=== PATIENT | female | born 1995 | race Two or more races ===

== ENCOUNTER 2019-06-20 23:28 | Emergency (ER) | payer BC ==
[~2019-06-20] VITALS: Ht 167.6 cm; Wt 106.6 kg
[2019-06-20 23:35] VITALS: BP 106/68
--- NOTE | 2019-06-20 23:35 | NUR ---
ED Nurse Note: pt walked in c/o cough x 2 days and lower back pain, pt reports she had fever yesterday, reports taking ibuprofen 600mg this morning. denies pain at the moment. patient ao4. nad. vss. expiratory wheezes noted.
[2019-06-20] MEDS ORDERED: ALBUTEROL SULF8.5 GM INH (23:44)
[2019-06-20] MEDS ORDERED: PREDNISONE20 MG ORAL (23:44)
[2019-06-20] MEDS ORDERED: Ipratropium 0.02% Inh Soln 2.5ml UD HHN ONE (23:45)
[2019-06-20] MEDS ORDERED: Albuterol ud Inhalation HHN ONE (23:45)
--- NOTE | 2019-06-20 23:45 | Emergency Room Report ---
History of Present Illness General Chief Complaint: Upper Respiratory Illness Source: Patient Present Illness [facility] This is a 24-year-old female with no past medical history. She presents with chief complaint of cough. Onset for last 3 days. Does have some congestion. She states she felt wheezing. Worse in cold environment. She works at [employer] and [employer] and when she goes into the fridge area she get worse. No fever chills but no nausea no vomiting. No chest pain. Better with rest. Worse with inspiration. Allergies: Coded Allergies: No Known Allergies (Unverified , 06/20/19) Patient History Past Medical History: see triage record, old chart reviewed Past Surgical History: none Pertinent Family History: none Social History: Denies: smoking Now: No Immunizations: other Reviewed Nursing Documentation: PMH: Agreed; PSxH: Agreed Nursing Documentation-PMH Past Medical History: No Stated History Review of Systems Eye: Denies: eye pain, blurred vision ENT: Denies: ear pain, nose congestion, throat swelling Respiratory: Reports: cough, shortness of breath, wheezing Cardiovascular: Denies: chest pain, palpitations Gastrointestinal: Denies: abdominal pain, diarrhea, nausea, vomiting Musculoskeletal: Denies: back pain, joint pain Skin: Denies: rash Neurological: Denies: headache, numbness Endocrine: Denies: increased thirst, increased urine Hematologic/Lymphatic: Denies: easy bruising All Other Systems: negative except mentioned in HPI Physical Exam Vital Signs Date Time Temp Pulse Resp B/P (MAP) Pulse Ox O2 Delivery O2 Flow Rate FiO2 06/20/19 23:32 98.1 90 18 106/68 (81) 97 Room Air Vitals normal Sp02 EP Interpretation: reviewed, normal General Appearance: well appearing, no apparent distress, alert, obese Head: normocephalic, atraumatic Eyes: bilateral eye PERRL, bilateral eye EOMI ENT: hearing grossly normal, normal pharynx Neck: full range of motion, supple, no meningismus Respiratory: chest non-tender, lungs clear, normal breath sounds Cardiovascular #1: regular rate, rhythm, no murmur Gastrointestinal: normal bowel sounds, non tender, no mass, no organomegaly, no bruit, non-distended Musculoskeletal: back normal, normal range of motion, gait/station normal Psychiatric: mood/affect normal Medical Decision Making Diagnostic Impression: Primary Impression: Asthma exacerbation Qualified Codes: J45.21 - Mild intermittent asthma with (acute) exacerbation ER Course Patient with symptoms consistent with asthma. She states she get breathing treatments several times already. When she gets sick or there is dust or cold, she gets wheezy. No evidence of pneumonia, ACS, dissection to name a few. Last Vital Signs Date Time Temp Pulse Resp B/P (MAP) Pulse Ox O2 Delivery O2 Flow Rate FiO2 06/20/19 23:32 98.1 90 18 106/68 (81) 97 Room Air Status: improved Disposition: HOME, SELF-CARE Condition: Stable Scripts Prednisone* (PREDNISONE*) 20 Mg Tablet 40 MG ORAL DAILY, #8 TAB Prov: Odilon Torres MD 06/20/19 Albuterol Sulfate* (ALBUTEROL SULFATE MDI*) 8.5 Gm Hfa.aer.ad 2 PUFF INH Q4H PRN for cough/wheezing, #1 EA 0 Refills Prov: Odilon Torres MD 06/20/19 Additional Instructions: Follow-up with your doctor in 7 days. Return if worse. Odilon Torres MD Jun 20, 2019 23:45
--- NOTE | 2019-06-21 00:18 | NUR ---
ED Nurse Note: rt at bedside with breathing tx. patient in no acute distress. tolerating tx well
--- NOTE | 2019-06-21 00:20 | NUR ---
ER DISCHARGE NOTE: Patient is cleared to be discharged per ERMD, pt is aox4, on room air, with stable vital signs. pt was given dc and prescription instructions, pt was able to verbalize understanding, pt id band removed. pt is able to ambulate with steady gait. pt took all belongings.
[2019-06-21 00:22] VITALS: BP 106/68
== END 2019-06-21 00:20 | disposition home or self-care (01) ==
LOC: EMR 23:50
DX: J45.21 Mild intermittent asthma with (acute) exacerbation (principal)
CPT/HCPCS: 94640; 99283; J7512

== ENCOUNTER 2019-06-24 05:01 | Emergency (ER) | payer BC ==
[~2019-06-24] VITALS: Ht 167.6 cm; Wt 102.5 kg
[~2019-06-24 05:01] MED LIST: ALBUTEROL SULF8.5 GM INH; PREDNISONE20 MG ORAL
--- NOTE | 2019-06-24 05:10 | NUR ---
ED Nurse Note: Patient walked into ED stating that she is unable to take continous deep breathes with onset about 0100, states inhalers have found no relief, satting at 98% able to speak in full sentences. Pt aox4, calm and resting in bed NAD, VSS. Friend at bedside. ERMD at bedside. Will continue to monitor.
[2019-06-24] MEDS ORDERED: Ipratropium 0.02% Inh Soln 2.5ml UD HHN ONE (05:15)
[2019-06-24] MEDS ORDERED: Albuterol ud Inhalation HHN ONE (05:15)
--- NOTE | 2019-06-24 05:20 | Emergency Room Report ---
History of Present Illness General Chief Complaint: Dyspnea/Respdistress Source: Patient (Harpreet Romero M.D.) Present Illness HPI 24-year-old female who presents with shortness of breath for 3 days duration worsening. She was seen recently and prescribed inhaler and prednisone with no improvement of symptoms. Patient denies any nausea vomiting but notes subjective fevers and congestion. Patient has no history of asthma.Patient states that her symptoms are worse in a cold environment especially when she goes into the fridge at [employer] and [employer] where she works. She notes now though compared to her last visit she is having chest tightness that worsens with inspiration. (Harpreet Romero M.D.) Allergies: Coded Allergies: No Known Allergies (Unverified , 06/20/19) Patient History Past Medical History: none Past Surgical History: none Last Menstrual Period: 05/31/19 (Harpreet Romero M.D.) Nursing Documentation-[facility] Past Medical History: No History, Except For Hx Asthma: Yes - bronchitis (Harpreet Romero M.D.) Review of Systems Constitutional: Denies: chills, fever Respiratory: Reports: cough, shortness of breath Cardiovascular: Denies: chest pain, palpitations Gastrointestinal: Denies: diarrhea, vomiting Genitourinary: Denies: hematuria, pain Musculoskeletal: Denies: joint swelling Skin: Denies: rash, lesions Neurological: Denies: headache, dizziness (Harpreet Romero M.D.) Physical Exam Vital Signs Date Time Temp Pulse Resp B/P (MAP) Pulse Ox O2 Delivery O2 Flow Rate FiO2 06/24/19 05:04 98.4 91 18 109/67 (81) 97 Room Air Sp02 EP Interpretation: reviewed General Appearance: well appearing, no apparent distress, non-toxic Head: normocephalic, atraumatic Eyes: bilateral eye normal inspection ENT: hearing grossly normal, EOM grossly intact, moist mucus membranes Neck: supple Respiratory: lungs clear, normal breath sounds, no rhonchi, no respiratory distress, no retraction, no accessory muscle use, no wheezing, speaking full sentences Cardiovascular #1: regular rate, rhythm, normal capillary refill Cardiovascular #2: 2+ radial (R), 2+ radial (L) Gastrointestinal: soft, no mass, no organomegaly, no peritonitis, non-distended Rectal: deferred Musculoskeletal: moves extm spontaneously, no lower extremity edema Neurologic: grossly normal Psychiatric: mood/affect normal Skin: warm/dry, normal turgor (Harpreet Romero M.D.) Medical Decision Making Diagnostic Impression: Primary Impression: Asthma attack Qualified Codes: J45.21 - Mild intermittent asthma with (acute) exacerbation ER Course 24-year-old female with shortness of breath and chest tightness. Not improving on steroids or albuterol. No history of asthma. Symptoms worsen with cold associated with congestion. Differential includes but is not limited to ACS pulmonary embolism pneumonia bronchitis asthma URI Will perform lab testing and chest x-ray at this time as patient initially failed outpatient management with inhaler and steroids. (Harpreet Romero M.D.) ER Course 24-year-old female presents with shortness of breath, differential diagnosis includes asthma exacerbation, PE, pneumonia Patient improved with breathing treatment Patient with a positive d-dimer, CT is negative Disposition home with return precautions Laboratory Tests Test 06/24/19 05:28 White Blood Count 14.8 K/UL (4.8-10.8) H Red Blood Count 4.16 M/UL (4.20-5.40) L Hemoglobin 8.7 G/DL (12.0-16.0) L Hematocrit 28.2 % (37.0-47.0) L Mean Corpuscular Volume 68 FL (80-99) L Mean Corpuscular Hemoglobin 21.0 PG (27.0-31.0) L Mean Corpuscular Hemoglobin Concent 31.0 G/DL (32.0-36.0) L Red Cell Distribution Width 16.3 % (11.6-14.8) H Platelet Count 387 K/UL (150-450) Mean Platelet Volume 7.0 FL (6.5-10.1) Neutrophils (%) (Auto) 60.5 % (45.0-75.0) Lymphocytes (%) (Auto) 31.0 % (20.0-45.0) Monocytes (%) (Auto) 6.6 % (1.0-10.0) Eosinophils (%) (Auto) 1.4 % (0.0-3.0) Basophils (%) (Auto) 0.6 % (0.0-2.0) D-Dimer 0.95 mg/L FEU (0.00-0.49) H Sodium Level 139 MMOL/L (136-145) Potassium Level 3.5 MMOL/L (3.5-5.1) Chloride Level 106 MMOL/L (98-107) Carbon Dioxide Level 24 MMOL/L (21-32) Anion Gap 9 mmol/L (5-15) Blood Urea Nitrogen 22 mg/dL (7-18) H Creatinine 0.8 MG/DL (0.55-1.30) Estimate Glomerular Filtration Rate > 60 mL/min (>60) Glucose Level 101 MG/DL (74-106) Calcium Level 8.5 MG/DL (8.5-10.1) Total Bilirubin 0.2 MG/DL (0.2-1.0) Aspartate Amino Transferase (AST) 13 U/L (15-37) L Alanine Aminotransferase (ALT) 22 U/L (12-78) Alkaline Phosphatase 68 U/L (46-116) Troponin I 0.000 ng/mL (0.000-0.056) Total Protein 7.7 G/DL (6.4-8.2) Albumin 3.6 G/DL (3.4-5.0) Globulin 4.1 g/dL Albumin/Globulin Ratio 0.9 (1.0-2.7) L Human Chorionic Gonadotropin, Quant 1 mIU/mL (1-6) Microbiology Date/Time Source Procedure Growth Status 06/24/19 05:31 Nasal Nares - Final Complete 06/24/19 05:31 Nasal Nares - Final Complete (Tavo Mccall MD) EKG Diagnostic Results EKG Time: 05:34 Rate: normal Rhythm: NSR ST Segments: no acute changes Other Impression Sinus rhythm rate of [address] changes (Harpreet Romero M.D.) Chest X-Ray Diagnostic Results Chest X-Ray Diagnostic Results : Chest X-Ray Ordered: Yes # of Views/Limited/Complete: 1 View Indication: Shortness of Breath EP Interpretation: Yes Interpretation: no consolidation, no effusion, no pneumothorax, no acute cardiopulmonary disease Impression: No acute disease Electronically Signed by: Tavo Mccall MD (Tavo Mccall MD) CT/MRI/US Diagnostic Results CT/MRI/US Diagnostic Results : Impression Final Report EXAM: CT Angiography Chest With Intravenous Contrast CLINICAL HISTORY: PAIN TECHNIQUE: Axial computed tomographic angiography images of the chest with intravenous contrast. CTDI is 109 mGy and DLP is 1451.7 mGy-cm. One or more of the following dose reduction techniques were used: automated exposure control, adjustment of the mA and/or kV according to patient size, use of iterative reconstruction technique. MIP reconstructed images were created and reviewed. Coronal and sagittal reformatted images were created and reviewed. COMPARISON: Chest x-ray today. FINDINGS: Pulmonary arteries: Unremarkable. No pulmonary embolism. Aorta: No acute findings. No thoracic aortic aneurysm. Lungs: Unremarkable. No mass. No consolidation. Pleural space: Unremarkable. No significant effusion. No pneumothorax. Heart: Unremarkable. No cardiomegaly. No significant pericardial effusion. No evidence of RV dysfunction. Mediastinum: Small hiatal hernia. Bones/joints: No acute fracture. No dislocation. Soft tissues: Unremarkable. Lymph nodes: Unremarkable. No enlarged lymph nodes. IMPRESSION: No pulmonary embolism. Radiologist: Clemencia Parker M.D. Electronically Signed: 06/24/19 09:29 Study ready at 08:43 and initial results transmitted at 09:29 (Tavo Mccall MD) Last Vital Signs Date Time Temp Pulse Resp B/P (MAP) Pulse Ox O2 Delivery O2 Flow Rate FiO2 06/24/19 05:04 98.4 91 18 109/67 (81) 97 Room Air (Harpreet Romero M.D.) Disposition: HOME, SELF-CARE Condition: Stable Scripts Prednisone* (PREDNISONE*) 50 Mg Tablet 50 MG ORAL DAILY, #4 TAB 0 Refills Prov: Tavo Mccall MD 06/24/19 Albuterol Sulfate* (ALBUTEROL SULFATE MDI*) 8.5 Gm Hfa.aer.ad 2 PUFF INH Q4H PRN for Shortness of Breath, #1 EA 0 Refills Prov: Tavo Mccall MD 06/24/19 Referrals: [facility]. [facility] Patient Instructions: Asthma Attack Prevention, Asthma, Adult, [id number] Additional Instructions: The patient was provided with discharge instructions, notified to follow-up with a primary care doctor and or specialist in the next 24-48 hours, and to return to the ED if they have worsening of their symptoms. Please note that this report is being documented using DRAGON technology. This can lead to erroneous entry secondary to incorrect interpretation by the dictating instrument. Harpreet Romero M.D. Jun 24, 2019 05:20 Tavo Mccall MD Jun 24, 2019 09:52
--- NOTE | 2019-06-24 05:25 | NUR ---
IV established on right AC. 20g saline lock. Blood drawn and sent to lab with urine. IV patent and intact. Addendum: 06/24/19 at 0534 by [email or web address] ED Nurse Note: IV established on right AC. 20g saline lock. Blood drawn and sent to lab with urine. IV patent and intact.
--- NOTE | 2019-06-24 05:26 | NUR ---
ED Nurse Note: Prednisone 60mg po cancelled by IVÁN. Medications was returned to the pyxis.
[2019-06-24 05:35] VITALS: BP 112/71
--- NOTE | 2019-06-24 05:45 | NUR ---
ED Nurse Note: RT at bedside. Pt receiving breathing treatment and tolerating well. Will continue to monitor.
--- NOTE | 2019-06-24 06:08 | NUR ---
ED Nurse Note: Pt is going down to radiology for x-ray with tech on wheelchair. IV patent and intact.
[2019-06-24 06:21] VITALS: BP 121/74
--- NOTE | 2019-06-24 06:21 | NUR ---
ED Nurse Note: Pt brought back to room from x-ray on wheelchair. Pt back on mold insert changer. VSS, NAD, will continue to monitor.
[2019-06-24 06:25] LABS: BASOPHILS % (AUTO) 0.6 % (0.0-2.0); EOSINOPHILS % (AUTO) 1.4 % (0.0-3.0); HEMATOCRIT 28.2 % (37.0-47.0); HEMOGLOBIN 8.7 G/DL (12.0-16.0); MEAN CORPUSCULAR VOLUME 68 FL (80-99); MONOCYTES % (AUTO) 6.6 % (1.0-10.0); NEUTROPHILS % (AUTO) 60.5 % (45.0-75.0); PLATELET COUNT 387 K/UL (150-450); RED BLOOD COUNT 4.16 M/UL (4.20-5.40); RED CELL DISTRIBUTION WIDTH 16.3 % (11.6-14.8); WHITE BLOOD COUNT 14.8 K/UL (4.8-10.8)
--- NOTE | 2019-06-24 06:44 | Diagnostic Imaging Report ---
EXAM: XR Chest, 2 Views CLINICAL HISTORY: SOB TECHNIQUE: Frontal and lateral views of the chest. COMPARISON: No relevant prior studies available. FINDINGS: Lungs: Low lung volumes. No consolidation. Pleural space: Unremarkable. No pleural effusions. No pneumothorax. Heart: Unremarkable. No cardiomegaly. Mediastinum: Unremarkable. Bones/joints: Unremarkable. IMPRESSION: No acute cardiopulmonary process.
[2019-06-24 06:48] LABS: ANION GAP 9 mmol/L (5-15); BLOOD UREA NITROGEN 22 mg/dL (7-18); CALCIUM 8.5 MG/DL (8.5-10.1); CARBON DIOXIDE 24 MMOL/L (21-32); CHLORIDE 106 MMOL/L (98-107); CREATININE 0.8 MG/DL (0.55-1.30); POTASSIUM 3.5 MMOL/L (3.5-5.1); SODIUM 139 MMOL/L (136-145)
[2019-06-24 06:53] LABS: ALANINE AMINOTRANSFERASE 22 U/L (12-78); ALBUMIN 3.6 G/DL (3.4-5.0); ALBUMIN/GLOBULIN RATIO 0.9 (1.0-2.7); ALKALINE PHOSPHATASE 68 U/L (46-116); ASPARTATE AMINO TRANSFERASE 13 U/L (15-37); BILIRUBIN,TOTAL 0.2 MG/DL (0.2-1.0)
[2019-06-24 07:15] VITALS: BP 121/60
[2019-06-24] MEDS ORDERED: Omnipaue 350mg/ml 100ml vial INJ PRN (07:15)
--- NOTE | 2019-06-24 07:18 | NUR ---
HAND-OFF: Report given to Jessica Pinto RN.
--- NOTE | 2019-06-24 07:20 | NUR ---
ED Nurse Note: Received pt. on bed, awake, alert, oriented x 4, on stable condition. VSS, no signs of any respiratory distress. IV site on LT AC with 20G, intact and patent. Will continue to monitor.
--- NOTE | 2019-06-24 08:15 | NUR ---
ED Nurse Note: Pt went on CT, via wheelchair, on stable condition.
--- NOTE | 2019-06-24 08:27 | NUR ---
ED Nurse Note: Pt returned from CT on stable condition.
[2019-06-24 09:15] VITALS: BP 154/85
--- NOTE | 2019-06-24 09:30 | NUR ---
ED Nurse Note: Pt still on bed, asleep, VSS, no signs of any respiratory distress noted. Will continue to monitor.
--- NOTE | 2019-06-24 09:31 | Diagnostic Imaging Report ---
EXAM: CT Angiography Chest With Intravenous Contrast CLINICAL HISTORY: PAIN TECHNIQUE: Axial computed tomographic angiography images of the chest with intravenous contrast. CTDI is 109 mGy and DLP is 1451.7 mGy-cm. One or more of the following dose reduction techniques were used: automated exposure control, adjustment of the mA and/or kV according to patient size, use of iterative reconstruction technique. MIP reconstructed images were created and reviewed. Coronal and sagittal reformatted images were created and reviewed. COMPARISON: Chest x-ray today. FINDINGS: Pulmonary arteries: Unremarkable. No pulmonary embolism. Aorta: No acute findings. No thoracic aortic aneurysm. Lungs: Unremarkable. No mass. No consolidation. Pleural space: Unremarkable. No significant effusion. No pneumothorax. Heart: Unremarkable. No cardiomegaly. No significant pericardial effusion. No evidence of RV dysfunction. Mediastinum: Small hiatal hernia. Bones/joints: No acute fracture. No dislocation. Soft tissues: Unremarkable. Lymph nodes: Unremarkable. No enlarged lymph nodes. IMPRESSION: No pulmonary embolism.
[2019-06-24] MEDS ORDERED: PREDNISONE50 MG ORAL (09:51)
[2019-06-24] MEDS ORDERED: ALBUTEROL SULF8.5 GM INH (09:51)
[2019-06-24 10:11] VITALS: BP 126/54
--- NOTE | 2019-06-25 19:21 | Cardiology Report ---
APPROVED REPORT EKG Measurement Heart [id number] Normal sinus rhythm with sinus arrhythmia Normal ECG
== END 2019-06-24 10:11 | disposition home or self-care (01) ==
LOC: EMR 05:22
DX: J45.21 Mild intermittent asthma with (acute) exacerbation (principal); K44.9 Diaphragmatic hernia without obstruction or gangrene
CPT/HCPCS: 36415; 71046; 71275; 80053; 84484; 84702; 85025; 85379; 86710; 93005; 94640; 99284; Q9967

== ENCOUNTER 2019-09-15 15:09 | Emergency (ER) | payer BC ==
[~2019-09-15] VITALS: Ht 170.2 cm; Wt 103.0 kg
[~2019-09-15 15:09] MED LIST changes: +PREDNISONE50 MG ORAL
--- NOTE | 2019-09-15 15:15 | NUR ---
ED Nurse Note: Patient walked in to ER c/o N/V, abd pain since this morning. Patient vomited 200cc of clear emesis at triage room, AAO x4, VSS at this time, skin is warm to toouch. Patient presented weak, pale.
[2019-09-15 15:30] VITALS: BP 148/92
[2019-09-15] MEDS ORDERED: Ketorolac 30mg Inj IV ONE (15:30)
--- NOTE | 2019-09-15 15:52 | Emergency Room Report ---
History of Present Illness General Chief Complaint: Abdominal Pain Source: Medical Record Present Illness HPI 24-year-old obese female with no past medical history here complaining of sudden onset of multiple bouts of nonbloody emesis and epigastric abdominal pain that started this morning. Denies any recent travel, fever and chills, diarrhea and constipation. Denies ingestion of any new food. Denies eating spicy acidic food. Denies being at this time. Reports her last menstrual period was 3 weeks ago. Denies urinary frequency and urgency. Denies drug use, tobacco smoke, marijuana use, alcohol intake. Appears to be dehydrated. However appears to be wearing fresh Medi-Alan, and valproate. Does not want to cooperate and answer questions at first. Denies chest pain, shortness of breath, palpitation, headache or dizziness. Allergies: Coded Allergies: No Known Allergies (Unverified , 06/20/19) Patient History Past Medical History: see triage record Past Surgical History: none Pertinent Family History: none Last Menstrual Period: 08/21/19 Now: No Immunizations: UTD Reviewed Nursing Documentation: PMH: Agreed; PSxH: Agreed Nursing Documentation-PMH Past Medical History: No History, Except For Hx Asthma: Yes - bronchitis Review of Systems All Other Systems: negative except mentioned in HPI Physical Exam Vital Signs Date Time Temp Pulse Resp B/P (MAP) Pulse Ox O2 Delivery O2 Flow Rate FiO2 09/15/19 15:15 98.4 93 18 148/92 (110) 99 Room Air Sp02 EP Interpretation: reviewed, normal General Appearance: alert, GCS 15, non-toxic, mild distress Head: normocephalic, atraumatic Eyes: bilateral eye normal inspection, bilateral eye PERRL ENT: hearing grossly normal, normal pharynx, no angioedema, normal voice Neck: full range of motion, supple, thyroid normal, no meningismus, no bony tend, supple/symm/no masses Respiratory: chest non-tender, lungs clear, normal breath sounds, no rhonchi, no respiratory distress, no retraction, no accessory muscle use, no wheezing, speaking full sentences Cardiovascular #1: normal inspection, normal peripheral pulses, regular rate, rhythm, no edema, no murmur Cardiovascular #2: 2+ carotid (R), 2+ carotid (L), 2+ radial (R), 2+ radial (L) Gastrointestinal: normal bowel sounds, non tender, soft, no mass, no organomegaly, no peritonitis, no bruit, non-distended, no guarding, no hernia, no pulsatile mass, no rebound Rectal: deferred Genitourinary: no CVA tenderness Musculoskeletal: back normal Neurologic: alert, motor strength/tone normal, oriented, oriented x3, sensory intact, responsive, speech normal Psychiatric: judgement/insight normal, memory normal, mood/affect normal, no suicidal/homicidal ideation Skin: no rash Lymphatic: no adenopathy Medical Decision Making PA Attestation All diagnoses and treatment plans were reviewed and discussed with my supervising physician Dr. Alfonso Diagnostic Impression: Primary Impression: Anemia Additional Impressions: Acute gastroenteritis UTI (urinary tract infection) ER Course 24-year-old obese female with no past medical history here complaining of sudden onset of multiple bouts of nonbloody emesis and epigastric abdominal pain that started this morning. Denies any recent travel, fever and chills, diarrhea and constipation. Denies ingestion of any new food. Denies eating spicy acidic food. Denies being at this time. Reports her last menstrual period was 3 weeks ago. Denies urinary frequency and urgency. Denies drug use, tobacco smoke, marijuana use, alcohol intake. Appears to be dehydrated. However appears to be wearing fresh Medi-Alan, and valproate. Does not want to cooperate and answer questions at first. Denies chest pain, shortness of breath, palpitation, headache or dizziness. Ddx considered but are not limited to: appendicitis, cholecystis, gastritis, gastroenteritis, UTI, pyelonephritis, SBO, diverticulitis, influenza with GI manifestation, MA, complication with Vital signs: are WNL, pt. is afebrile H&PE are most consistent with: Anemia, gastroenteritis, UTI ORDERS: CBC, CMP, UA, urine test, tox screen, EtOH levels, ferrous sulfate, Zofran, Tylenol, Keflex ED INTERVENTIONS: NS bolus, Zofran, Pepcid, Toradol DISCHARGE: At this time pt. is stable for d/c to home. Will provide printed patient care instructions, and any necessary prescriptions. Care plan and follow up instructions have been discussed with the patient prior to discharge. Patient to increase oral hydration, take medication as directed, follow with primary care provider, if worsening symptoms return to the emergency room CT/MRI/US Diagnostic Results CT/MRI/US Diagnostic Results : Imaging Test Ordered: CT abdomen pelvis with contrast Impression FINDINGS: Lung bases: No significant abnormality. Mediastinum: Small hiatal hernia. ABDOMEN: Liver: Hepatomegaly. No focal lesions. Gallbladder and bile ducts: No significant abnormality. No calcified stones. Pancreas: No significant abnormality. Spleen: No significant abnormality. Adrenals: No significant abnormality. Kidneys and ureters: No significant abnormality. No hydronephrosis. Stomach and bowel: No significant abnormality. Bowel is nondilated. PELVIS: Appendix: No findings to suggest acute appendicitis. Bladder: No significant abnormality. Reproductive: Unremarkable as visualized. ABDOMEN and PELVIS: Intraperitoneal space: No significant abnormality. No free air. Bones/joints: Postsurgical changes are present in the right proximal femur. No acute osseous abnormality. Soft tissues: No significant abnormality. Vasculature: No significant abnormality. No abdominal aortic aneurysm. Lymph nodes: No significant abnormality. IMPRESSION: No acute CT findings in the abdomen or pelvis. Last Vital Signs Date Time Temp Pulse Resp B/P (MAP) Pulse Ox O2 Delivery O2 Flow Rate FiO2 09/15/19 15:15 98.4 93 18 148/92 (110) 99 Room Air Status: improved Disposition: HOME, SELF-CARE Condition: Stable Referrals: NOT CHOSEN IPA/MD,REFERRING (PCP) Patient Instructions: Abdominal Pain, Adult, Iron Deficiency Anemia, Adult, [id number] Additional Instructions: Take medication as directed, follow-up with your primary care provider, increase oral hydration, if worsening symptoms return to the emergency room Genevieve Smith Sep 15, 2019 15:52
[2019-09-15 16:01] LABS: ANION GAP 15 mmol/L (5-15); BLOOD UREA NITROGEN 12 mg/dL (7-18); CALCIUM 9.3 MG/DL (8.5-10.1); CARBON DIOXIDE 21 MMOL/L (21-32); CHLORIDE 105 MMOL/L (98-107); CREATININE 0.7 MG/DL (0.55-1.30); POTASSIUM 3.8 MMOL/L (3.5-5.1); SODIUM 141 MMOL/L (136-145)
[2019-09-15 16:05] LABS: ALANINE AMINOTRANSFERASE 27 U/L (12-78); ALBUMIN 4.1 G/DL (3.4-5.0); ALBUMIN/GLOBULIN RATIO 0.9 (1.0-2.7); ALKALINE PHOSPHATASE 83 U/L (46-116); ASPARTATE AMINO TRANSFERASE 18 U/L (15-37); BILIRUBIN,TOTAL 0.3 MG/DL (0.2-1.0)
[2019-09-15 16:19] LABS: HEMATOCRIT 30.1 % (37.0-47.0); HEMOGLOBIN 9.4 G/DL (12.0-16.0); MEAN CORPUSCULAR VOLUME 64 FL (80-99); PLATELET COUNT 432 K/UL (150-450); RED BLOOD COUNT 4.72 M/UL (4.20-5.40); RED CELL DISTRIBUTION WIDTH 17.7 % (11.6-14.8); WHITE BLOOD COUNT 14.1 K/UL (4.8-10.8)
[2019-09-15] MEDS ORDERED: Omnipaque-300 100ml vial INJ PRN (16:30)
[2019-09-15 16:50] LABS: APPEARANCE,URINE CLOUDY; BILIRUBIN, URINE NEGATIVE (NEGATIVE); GLUCOSE, URINE (UA) NEGATIVE (NEGATIVE); KETONES,URINE 4+ (NEGATIVE); LEUKOCYTE ESTERASE ,URINE 2+ (NEGATIVE); NITRITE,URINE NEGATIVE (NEGATIVE); PH,URINE 5 (4.5-8.0); PROTEIN,URINE 3+ (NEGATIVE); UROBILINOGEN,URINE NORMAL MG/DL (0.0-1.0)
[2019-09-15 16:54] LABS: COLOR,URINE YELLOW
--- NOTE | 2019-09-15 18:07 | Diagnostic Imaging Report ---
EXAM: CT Abdomen and Pelvis With Intravenous Contrast CLINICAL HISTORY: PAIN TECHNIQUE: Axial computed tomography images of the abdomen and pelvis with intravenous contrast. CTDI is 13.5 mGy and DLP is 706.9 mGy-cm. One or more of the following dose reduction techniques were used: automated exposure control, adjustment of the mA and/or kV according to patient size, use of iterative reconstruction technique. COMPARISON: No relevant prior studies available. FINDINGS: Lung bases: No significant abnormality. Mediastinum: Small hiatal hernia. ABDOMEN: Liver: Hepatomegaly. No focal lesions. Gallbladder and bile ducts: No significant abnormality. No calcified stones. Pancreas: No significant abnormality. Spleen: No significant abnormality. Adrenals: No significant abnormality. Kidneys and ureters: No significant abnormality. No hydronephrosis. Stomach and bowel: No significant abnormality. Bowel is nondilated. PELVIS: Appendix: No findings to suggest acute appendicitis. Bladder: No significant abnormality. Reproductive: Unremarkable as visualized. ABDOMEN and PELVIS: Intraperitoneal space: No significant abnormality. No free air. Bones/joints: Postsurgical changes are present in the right proximal femur. No acute osseous abnormality. Soft tissues: No significant abnormality. Vasculature: No significant abnormality. No abdominal aortic aneurysm. Lymph nodes: No significant abnormality. IMPRESSION: No acute CT findings in the abdomen or pelvis.
[2019-09-15] MEDS ORDERED: TYLENOL EXTRA500 MG ORAL (18:14)
[2019-09-15] MEDS ORDERED: FERROUS SULFAT325 MG ORAL (18:14)
[2019-09-15] MEDS ORDERED: CEPHALEXIN500 MG ORAL (18:14)
[2019-09-15] MEDS ORDERED: OMEPRAZOLE20 M3 ORAL (18:14)
[2019-09-15] MEDS ORDERED: ZOFRAN4 M3 ORAL (18:14)
[2019-09-15 18:26] VITALS: BP 132/75
--- NOTE | 2019-09-15 18:26 | NUR ---
ER DISCHARGE NOTE: Patient is cleared to be discharged per ERMD, pt is aox4, on room air, with stable vital signs. pt was given dc and prescription instructions, pt was able to verbalize understanding, pt id band and iv site removed without complications. pt is able to ambulate with steady gait. pt took all belongings.
== END 2019-09-15 18:26 | disposition home or self-care (01) ==
LOC: EMR 15:45
DX: D64.9 Anemia, unspecified (principal); K52.9 Noninfective gastroenteritis and colitis, unspecified; N39.0 Urinary tract infection, site not specified
CPT/HCPCS: 36415; 74177; 80053; 80307; 81003; 81025; 83690; 85007; 85025; 96361; 96374; 96375; 99284; G0480; J1885; J2405; J7030; Q9967; S0028